=== PATIENT | female | born 1990 | race Hispanic/Latino ===

== ENCOUNTER 2017-12-03 09:47 | Emergency (ER) | payer OTHER ==
--- NOTE | 2017-12-03 10:30 | C.PDOC ---
History Of Present Illness SP WITNESSED SYNCOPAL EPISODE @ 0800. PS SITTING IN TRAIN, FELT NAUSEA, HEADACHE AND LIGHTHEADED, " FELT LIKE IT WAS COMING". PREV MULT SIM EPISODES SINCE A TEENAGER, LAST EPISODE 1 YR AGO UNDER SIMILIAR CIRCUMSTANCES. 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 PENDING FIRST TIME EVAL W PMD THIS WEEK. UNK HEAD TRAUMA. CURRENTLY CO PERSIST NAUSEA, YBARRA PERSISTENT BUT IMPROVED FROM INITIAL. DENIED ASSOC CP, HO MIGRAINE. PS NEW ONSET ASSOC YBARRA, PRIOR EPISODES NEVER HAD ASSOC YBARRA EXAM NAD NONTOXIC HEENT ATRAUM CV RRR NEURO NO GROSS FOCAL DEF GAIT AMBUL WO DIFF, NO INDUCIBLE DIZZINESS REMAINDER NEG Time Seen by Provider: 12/03/17 10:05 Chief Complaint (Nursing): Syncope History Per: Patient History/Exam Limitations: no limitations Onset/Duration Of Symptoms: Hrs Current Symptoms Are (Timing): Still Present Severity: Moderate Past Medical History Reviewed: Historical Data, Nursing Documentation, Vital Signs Vital Signs: Last Vital Signs Temp 98.1 F 12/03/17 12:55 Pulse 57 L 12/03/17 12:55 Resp 20 12/03/17 12:55 BP 102/68 12/03/17 12:55 Pulse Ox 100 12/03/17 12:55 - Medical History PMH: No Chronic Diseases Surgical History: No Surg Hx Family History: States: No Known Family Hx - Social History Hx Alcohol Use: Yes Hx Substance Use: No - Immunization History Hx Tetanus Toxoid Vaccination: No Hx Influenza Vaccination: No Hx Pneumococcal Vaccination: No Review Of Systems Cardiovascular: Negative for: Chest Pain Gastrointestinal: Positive for: Nausea Neurological: Positive for: Headache Physical Exam - Physical Exam Appears: Non-toxic, No Acute Distress Skin: Normal Color, Warm Head: Atraumatic Eye(s): bilateral: Normal Inspection Cardiovascular: Other (RRR) Neurological/Psych: Other (no inducible dizziness,no gross focal deficits) Gait: Steady (ambulatory without difficulty) ED Course And Treatment - Laboratory Results Result Diagrams: 12/03/17 11:17 12/03/17 11:17 ECG: Interpreted By Me ECG Rhythm: Sinus Rhythm ECG Interpretation: Normal Rate From EC O2 Sat by Pulse Oximetry: 99 (RA) Pulse Ox Interpretation: Normal - CT Scan/US Head CT Other Rad Studies (CT/US): Read By Radiologist CT/US Interpretation: PROCEDURE: CT HEAD WITHOUT CONTRAST. HISTORY: SYNCOPE HEADACHE. COMPARISON: None available. TECHNIQUE: Axial computed tomography images were obtained through the head/brain without intravenous contrast. Radiation dose: Total exam DLP = 770.79 mGy-cm. This CT exam was performed using one or more of the following dose reduction techniques: Automated exposure control, adjustment of the mA and/or kV according to patient size, and/ or use of iterative reconstruction technique. FINDINGS: Streak artifact limits evaluation of the skullbase. HEMORRHAGE: No intracranial hemorrhage. BRAIN: No mass effect or edema. No atrophy or chronic microvascular ischemic changes. VENTRICLES: No hydrocephalus. CALVARIUM: Unremarkable. PARANASAL SINUSES: Unremarkable as visualized. No significant inflammatory changes. MASTOID AIR CELLS: Unremarkable as visualized. No inflammatory changes. OTHER FINDINGS: None. IMPRESSION: No acute intracranial pathology identified. Progress - Re-Evaluation Re-evaluation Note: 12/03/17 12:47 FEELS BETTER. NO RECUR SX SINCE INITIAL EVAL. AMBUL WO DIFF, NO REPRODUCIBLE DIZZINESS. PT ADVISED NEED FOR CARDIO AND NEURO FU. - Data Reviewed Data Reviewed: Lab, Diagnostic imaging, EKG, Old records - Continuity of Care Discussed patient case with:: Patient Medical Decision Making Medical Decision Making: Plan: --Labs --CXR --CT-Head W/O Contrast Disposition Counseled Patient/Family Regarding: Studies Performed, Diagnosis, Need For Followup - Disposition Referrals: Vikas Hernandez MD [Staff Provider] - Disposition: HOME/ ROUTINE Disposition Time: 12:47 Condition: IMPROVED Instructions: Syncope (Fainting) Forms: [facility] (Nauruan), Work Excuse - Clinical Impression Clinical Impression: Syncope - Scribe Statement The provider has reviewed the documentation as recorded by the Rosalie Ojeda Provider Attestation: All medical record entries made by the Patsyibe were at my direction and personally dictated by me. I have reviewed the chart and agree that the record accurately reflects my personal performance of the history, physical exam, medical decision making, and the department course for this patient. I have also personally directed, reviewed, and agree with the discharge instructions and disposition.
--- NOTE | 2017-12-03 10:57 | RAD ---
HISTORY: SYNCOPE COMPARISON: None available. TECHNIQUE: Chest PA and lateral FINDINGS: LUNGS: No focal consolidation. Please note that chest x-ray has limited sensitivity for the detection of pulmonary masses. PLEURA: No significant pleural effusion identified. No definite pneumothorax . CARDIOVASCULAR: The cardiomediastinal silhouette appears within normal limits of size. OSSEOUS STRUCTURES: No acute osseous abnormality identified. VISUALIZED UPPER ABDOMEN: Unremarkable. OTHER FINDINGS: Bilateral nipple rings. IMPRESSION: No focal consolidation identified.
[2017-12-03 11:26] LABS: BASO % 0.6 % (0.0-2.0); EOS # 0.1 K/uL (0.0-0.7); EOS % 1.3 % (0.0-4.0); HEMOGLOBIN 14.2 g/dL (11.0-16.0); LYMPH # 1.6 K/uL (1.0-4.3); LYMPH % 24.6 % (20.0-40.0); MEAN CELL VOLUME 88.8 fL (81.0-99.0); MEAN CORPUSCULAR HEMOGLOBIN 31.6 pg (27.0-31.0); MEAN CORPUSCULAR HGB CONC 35.6 g/dL (33.0-37.0); MEAN PLATELET VOLUME 8.5 fL (7.2-11.7); MONO # 0.4 K/uL (0.0-0.8); MONO % 6.2 % (0.0-10.0); NEUT # 4.4 K/uL (1.8-7.0); NEUT % 67.3 % (50.0-75.0); RBC 4.48 Mil/uL (3.80-5.20); RED CELL DISTRIBUTION WIDTH 12.5 % (11.5-14.5); WHITE BLOOD COUNT 6.5 K/uL (4.8-10.8)
[2017-12-03 11:35] LABS: BLOOD UREA NITROGEN 12 mg/dL (7-17); CALCIUM 9.2 mg/dl (8.6-10.4); GFR AFRICAN-AMERICAN > 60; GFR NON-AFRICAN AMERICAN > 60
--- NOTE | 2017-12-03 12:07 | CT ---
PROCEDURE: CT HEAD WITHOUT CONTRAST. HISTORY: SYNCOPE HEADACHE COMPARISON: None available. TECHNIQUE: Axial computed tomography images were obtained through the head/brain without intravenous contrast. Radiation dose: Total exam DLP = 770.79 mGy-cm. This CT exam was performed using one or more of the following dose reduction techniques: Automated exposure control, adjustment of the mA and/or kV according to patient size, and/or use of iterative reconstruction technique. FINDINGS: Streak artifact limits evaluation of the skullbase. HEMORRHAGE: No intracranial hemorrhage. BRAIN: No mass effect or edema. No atrophy or chronic microvascular ischemic changes. VENTRICLES: No hydrocephalus. CALVARIUM: Unremarkable. PARANASAL SINUSES: Unremarkable as visualized. No significant inflammatory changes. MASTOID AIR CELLS: Unremarkable as visualized. No inflammatory changes. OTHER FINDINGS: None. IMPRESSION: No acute intracranial pathology identified.
[2017-12-03 12:57] VITALS: BP 102/68; PULSE 57; RESP 20; TEMP 98.1
[2017-12-03 18:06] VITALS: O2SAT 99
--- NOTE | 2017-12-06 22:54 | CARD ---
APPROVED REPORT EKG Measurement Heart [id number] HI [id number] <Conclusion> Normal sinus rhythm Normal ECG
== END 2017-12-03 12:55 | disposition home or self-care (01) ==
LOC: C.ER 09:47
DX: R55 Syncope and collapse (principal)
CPT/HCPCS: 70450; 71046; 80048; 85025; 96374; 99285; J2765